=== PATIENT | male | born 1975 | race Hispanic/Latino ===

== ENCOUNTER 2019-07-27 07:53 | Inpatient (IN) | payer OTHER ==
[~2019-07-27 07:53] MED LIST: ALPR0.5T8 PO; FLUO20CA30 PO; LANS30CA55 PO; LISI40TA4 PO; RANI150T7 PO; ZOLP10TA6 PO
[2019-07-27] MEDS ORDERED: LORAZEPAM 2 MG/ML 1 ML VIAL ONE ×2 (08:11→09:23)
[2019-07-27 09:07] LABS: ALANINE AMINOTRANSFERASE 126 U/L (12-78); ALBUMIN 4.3 g/dL (3.5-5.0); ASPARTATE AMINOTRANSFERASE 135 U/L (10-37); BILIRUBIN,TOTAL 1.4 mg/dL (0.2-1.0); CARBON DIOXIDE 17 mmol/L (21-32); CREATININE 0.7 mg/dL (0.5-1.5); GLOMERULAR FILTR. RATE CALC 130 mL/min (>60); GLUCOSE,RANDOM 143 mg/dL (70-105); MYOGLOBIN 100 ng/mL (10-92); SODIUM SERUM 115 mmol/L (136-145); TOTAL PROTEIN, SERUM 7.7 g/dL (6.0-8.3); TROPONIN I < 0.04 ng/mL (0.00-0.06); UREA NITROGEN, BLOOD 11 mg/dL (7-18)
[2019-07-27] MEDS ORDERED: SODIUM CHLORIDE 0.9% 1000ML 2,000 ML IV ONE (09:08)
[2019-07-27 09:09] LABS: BASOPHILS % (AUTO) 0.5 % (0.0-5.0); CHLORIDE 77 mmol/L (101-111); CREATINE KINASE, TOTAL 453 U/L (21-232); EOSINOPHILS % (AUTO) 1.5 % (0.0-8.0); HEMATOCRIT 33.7 % (42-54); MEAN CORPUSCULAR HEMOGLOBIN 32.9 pg (27.0-33.0); MEAN CORPUSCULAR HGB CONC 37.1 g/dL (32.0-36.0); MEAN CORPUSCULAR VOLUME 88.7 fL (79-99); MONOCYTES % (AUTO) 6.7 % (3.0-13.0); NEUTROPHILS % (AUTO) 86.6 % (40.0-77.0); PLATELET COUNT (AUTO) 134 K/uL (130-400); RED CELL DISTRIBUTION WIDTH 12.5 % (11.0-15.5); WHITE BLOOD COUNT (AUTO) 7.3 K/uL (4.8-10.8)
[2019-07-27 09:21] LABS: INR 1.04 (0.85-1.15); PARTIAL THROMBOPLASTIN TIME 28.9 SEC (26.3-35.5); PROTHROMBIN TIME 11.2 SEC (9.6-11.6)
[2019-07-27] MEDS ORDERED: ONDANSETRON HCL 4 MG/2 ML VIAL ONE (09:22)
[2019-07-27 09:46] LABS: CREATININE 0.6 mg/dL (0.5-1.5); POTASSIUM 4.5 mmol/L (3.5-5.1)
[2019-07-27] MEDS ORDERED: PHARMACY COMMUNICATION MISC PRN (10:15)
[2019-07-27] MEDS ORDERED: CHLORDIAZEPOXIDE HCL 25 MG CAP PO PRN (10:15)
[2019-07-27] MEDS ORDERED: LORAZEPAM 2 MG/ML 1 ML VIAL IVP PRN (10:15)
[2019-07-27 10:27] LABS: APPEARANCE,URINE CLEAR (CLEAR); BILIRUBIN,URINE NEGATIVE (NEGATIVE); COLOR,URINE YELLOW (YELLOW); GLUCOSE, URINE (UA) 100 mg/dL (NEGATIVE); KETONES,URINE 40 mg/dL (NEGATIVE); LEUKOCYTE ESTERASE ,URINE NEGATIVE (NEGATIVE); NITRATE,URINE NEGATIVE (NEGATIVE); OCCULT BLOOD,URINE SMALL (NEGATIVE); PH,URINE 5.5 (5.0-8.0); PROTEIN,URINE 100 mg/dL (NEGATIVE); UROBILINOGEN,URINE 0.2 mg/dL (0.2-1.0)
[2019-07-27 10:31] LABS: BACTERIA,URINE Few /HPF (None Seen); MUCUS,URINE Few LPF (None Seen); RBC,URINE 0-1 /HPF (0-1); SQUAMOUS EPITHELIAL CELL,UR Rare /HPF (0-2); WBC,URINE 0-1 /HPF (0-1)
[2019-07-27 10:34] LABS: AMPHET/METH SCREEN,URINE NEGATIVE (NEGATIVE); BARBITURATE SCREEN, URINE NEGATIVE (NEGATIVE); BENZODIAZEPINES SCREEN,URINE NEGATIVE (NEGATIVE); CANNABINOID SCREEN,URINE NEGATIVE (NEGATIVE); COCAINE SCREEN,URINE NEGATIVE (NEGATIVE); CREATININE,URINE RANDOM 209 mg/dL (30-135); OPIATE SCREEN,URINE NEGATIVE (NEGATIVE); PHENCYCLIDINE SCREEN,URINE NEGATIVE (NEGATIVE); SODIUM,URINE RANDOM 77 mmol/l (40-220)
[2019-07-27 10:58] LABS: ALCOHOL, BLOOD < 3 mg/dL (0-10)
[2019-07-27] MEDS ORDERED: LABETALOL HCL 5 MG/ML 20ML VIAL IV PRN (11:45)
[2019-07-27] MEDS ORDERED: LISINOPRIL 10 MG TABLET PO SCH (12:45)
--- NOTE | 2019-07-27 15:56 | NUR ---
DCP: HOME SW met with pt who lives independently at home with Etta Yuan [phone] and 15yro daughter. Pt is retired lawyers, uses no DME or in home care services. PCP is Dr Esquivel and he uses [facility] for rx. Pt denies dc needs and plan is home at dc Addendum: 07/27/19 at 1558 by MICHELA MEDRANO Amended: Links added.
[2019-07-27 17:30] LABS: CREATININE 0.7 mg/dL (0.5-1.5); POTASSIUM 3.9 mmol/L (3.5-5.1)
[2019-07-27] MEDS ORDERED: CHLORDIAZEPOXIDE HCL 25 MG CAP ONE (18:12)
[2019-07-27] MEDS ORDERED: FAMOTIDINE/PF 20 MG/2 ML VIAL IV SCH (21:00)
[2019-07-28 05:15] LABS: BASOPHILS % (AUTO) 0.2 % (0.0-5.0); EOSINOPHILS % (AUTO) 0.5 % (0.0-8.0); LYMPHOCYTES % (AUTO) 18.9 % (21.0-51.0); MEAN CORPUSCULAR HEMOGLOBIN 33.9 pg (27.0-33.0); MEAN CORPUSCULAR HGB CONC 36.1 g/dL (32.0-36.0); MONOCYTES % (AUTO) 9.5 % (3.0-13.0); NEUTROPHILS % (AUTO) 70.7 % (40.0-77.0); PLATELET COUNT (AUTO) 103 K/uL (130-400); RED BLOOD CELL COUNT(AUTO) 3.83 MIL/uL (4.50-6.20); RED CELL DISTRIBUTION WIDTH 12.9 % (11.0-15.5); WHITE BLOOD COUNT (AUTO) 4.2 K/uL (4.8-10.8)
[2019-07-28 05:40] LABS: ALBUMIN 3.9 g/dL (3.5-5.0); BILIRUBIN,TOTAL 1.1 mg/dL (0.2-1.0); CREATININE 0.8 mg/dL (0.5-1.5); MAGNESIUM 1.8 mg/dL (1.80-2.40); POTASSIUM 3.5 mmol/L (3.5-5.1); TOTAL PROTEIN, SERUM 7.7 g/dL (6.0-8.3)
[2019-07-28] MEDS ORDERED: ENOXAPARIN SODIUM 40 MG/0.4 ML SYRINGE SQ SCH (09:00)
[2019-07-28] MEDS ORDERED: M.V.I. IV [ADULT] 10 ML, FOLIC ACID 1 MG, THIAMINE HCL 100 MG in SODIUM CHLORIDE 0.9% 1... IV SCH (09:00)
[2019-07-28] MEDS ORDERED: THIAMINE HCL 100 MG TABLET PO SCH (09:00)
[2019-07-28] MEDS ORDERED: MULTIVITAMIN TABLET PO SCH (09:00)
[2019-07-28] MEDS ORDERED: FOLIC ACID 1 MG TABLET PO SCH (09:00)
[2019-07-28] MEDS ORDERED: THIAMINE HCL 100 MG TABLET ONE (09:41)
[2019-07-29] MEDS ORDERED: LISINOPRIL 10 MG TABLET PO SCH (12:30)
== END 2019-07-28 10:36 | disposition left against medical advice (07) | DRG 644 ==
LOC: EDH 07:53 → EDHIP 07:54
PROVIDERS: ADMIT Internal Medicine; ATTEND Internal Medicine
DX: E22.2 Syndrome of inappropriate secretion of antidiuretic hormone (principal); B17.9 Acute viral hepatitis, unspecified; E87.2 Acidosis; F10.239 Alcohol dependence with withdrawal, unspecified; I16.0 Hypertensive urgency; E11.9 Type 2 diabetes mellitus without complications; E86.0 Dehydration; F32.9 Major depressive disorder, single episode, unspecified; F41.1 Generalized anxiety disorder; I10 Essential (primary) hypertension; R53.81 Other malaise; R63.1 Polydipsia; Z82.3 Family history of stroke; Z82.49 Family history of ischemic heart disease and other diseases of the circulatory system
CPT/HCPCS: 36415; 70450; 71045; 76705; 80048; 80053; 80305; 81001; 82533; 82550; 82570; 83605; 83690; 83735; 83874; 83935; 84145; 84300; 84443; 84484; 85025; 85610; 85730; 87040; 87088; 93005; G0378; G0480; J2060; J2405; J3411; J3490; J7030

== ENCOUNTER 2020-09-02 00:02 | Emergency (ER) | payer SELFPAY ==
[~2020-09-02] VITALS: Ht 182.9 cm; Wt 81.6 kg
[~2020-09-02 00:02] MED LIST changes: -LISI40TA4 PO; +LISI40TA9 PO
[2020-09-02 00:04] VITALS: BP 126/77
[2020-09-02 01:23] VITALS: BP 129/84
[2020-09-02 03:01] VITALS: BP 117/74
== END 2020-09-02 03:36 | disposition home or self-care (01) ==
LOC: EDH 00:08
DX: S01.01XA Laceration without foreign body of scalp, initial encounter (principal); F10.129 Alcohol abuse with intoxication, unspecified; I10 Essential (primary) hypertension; Z79.899 Other long term (current) drug therapy; W18.39XA Other fall on same level, initial encounter; Y93.89 Activity, other specified; Y92.89 Other specified places as the place of occurrence of the external cause; Y99.8 Other external cause status
CPT/HCPCS: 12002; 70450

== ENCOUNTER 2020-12-31 21:11 | Inpatient (IN) | payer OTHER ==
[~2020-12-31] VITALS: Ht 182.9 cm; Wt 65.8 kg
[2020-12-31 21:59] LABS: ALBUMIN 1.5 g/dL (3.5-5.0); BILIRUBIN,TOTAL 6.3 mg/dL (0.2-1.0); CREATININE 1.3 mg/dL (0.5-1.5); POTASSIUM 3.2 mmol/L (3.5-5.1)
[2020-12-31 22:17] LABS: BASOPHILS % (AUTO) 0.1 % (0.0-5.0); EOSINOPHILS % (AUTO) 0.1 % (0.0-8.0); HEMATOCRIT 26.1 % (42-54); LYMPHOCYTES % (AUTO) 12.7 % (21.0-51.0); MEAN CORPUSCULAR HEMOGLOBIN 34.5 pg (27.0-33.0); MEAN CORPUSCULAR HGB CONC 37.9 g/dL (32.0-36.0); MEAN CORPUSCULAR VOLUME 90.9 fL (79-99); MONOCYTES % (AUTO) 11.5 % (3.0-13.0); PLATELET COUNT (AUTO) 112 K/uL (130-400); RED BLOOD CELL COUNT(AUTO) 2.87 MIL/uL (4.50-6.20); RED CELL DISTRIBUTION WIDTH 15.5 % (11.0-15.5); WHITE BLOOD COUNT (AUTO) 8.9 K/uL (4.8-10.8)
[2020-12-31 22:21] LABS: CRP QUANTITATIVE 32.4 mg/L (0.00-9.0); MAGNESIUM 1.1 mg/dL (1.80-2.40)
[2020-12-31] MEDS ORDERED: 0.9%NACL 1000ML 1,000 ML IV ONE (22:22)
[2020-12-31] MEDS ORDERED: IOHEXOL 350 MG/ML 100ML INFUS..BTL IV ONE ×2 (22:29→23:03)
[2020-12-31] MEDS ORDERED: LACTATED RINGERS 1000ML 1,000 ML IV ONE ×2 (22:30)
[2021-01-01] MEDS ORDERED: ALBUMIN (HUMAN) 25% 100 ML IV SCH (01:21)
[2021-01-01] MEDS ORDERED: AZITHROMYCIN 500MG VIAL IVPB SCH (01:30)
[2021-01-01] MEDS ORDERED: 0.9% NACL 250ML IVPB SCH (01:30)
[2021-01-01 01:55] LABS: AMYLASE 137 U/L (25-115); LIPASE 433 U/L (114-286)
[2021-01-01] MEDS ORDERED: ACETAMINOPHEN 325 MG TAB PO PRN ×2 (02:00)
[2021-01-01] MEDS ORDERED: NITROGLYCERIN 0.4 MG SL TAB SL PRN (02:00)
[2021-01-01] MEDS ORDERED: CALCIUM GLUC 1GM 2 GM in 0.9%NACL 100ML 100 ML IV SCH (02:00)
[2021-01-01] MEDS ORDERED: ONDANSETRON 4MG INJ IV PRN (02:00)
[2021-01-01] MEDS ORDERED: 0.9% NACL 500ML IV.SOLN 500 ML IV SCH (03:00)
[2021-01-01] MEDS ORDERED: ALBUMIN (HUMAN) 25% 100 ML IV ONE (03:18)
[2021-01-01] MEDS: CEFTRIAXONE 1G VIAL IVP SCH (03:37)
[2021-01-01] MEDS: AZITHROMYCIN 500MG+NS 250ML 250 ML IV SCH (04:26)
[2021-01-01] MEDS: MAGNESIUM 2GM PREMIX 50ML 50 ML IV SCH ×3 (04:29→12:54)
[2021-01-01 04:38] LABS: BASOPHILS % (AUTO) 0.1 % (0.0-5.0); EOSINOPHILS % (AUTO) 0.2 % (0.0-8.0); HEMATOCRIT 24.5 % (42-54); LYMPHOCYTES % (AUTO) 14.6 % (21.0-51.0); MEAN CORPUSCULAR HEMOGLOBIN 34.1 pg (27.0-33.0); MEAN CORPUSCULAR HGB CONC 37.6 g/dL (32.0-36.0); MEAN CORPUSCULAR VOLUME 90.7 fL (79-99); MONOCYTES % (AUTO) 12.8 % (3.0-13.0); NEUTROPHILS % (AUTO) 71.7 % (40.0-77.0); PLATELET COUNT (AUTO) 95 K/uL (130-400); RED CELL DISTRIBUTION WIDTH 15.9 % (11.0-15.5); WHITE BLOOD COUNT (AUTO) 8.3 K/uL (4.8-10.8)
[2021-01-01 04:40] LABS: APPEARANCE,URINE Clear (CLEAR); BILIRUBIN,URINE Large (NEGATIVE); COLOR,URINE Dark Yellow (YELLOW); GLUCOSE, URINE (UA) Negative (NEGATIVE); KETONES,URINE Negative (NEGATIVE); LEUKOCYTE ESTERASE ,URINE Negative (NEGATIVE); NITRATE,URINE Negative (NEGATIVE); OCCULT BLOOD,URINE Negative (NEGATIVE); PH,URINE 6.5 (5.0-8.0); PROTEIN,URINE Trace mg/dL (NEGATIVE)
[2021-01-01 04:46] LABS: BACTERIA,URINE None Seen /HPF (None Seen); RBC,URINE None Seen /HPF (0-1); SQUAMOUS EPITHELIAL CELL,UR Few /HPF (0-2); WBC,URINE None Seen /HPF (0-1)
[2021-01-01 04:48] LABS: AMPHET/METH SCREEN,URINE NEGATIVE (NEGATIVE); BARBITURATE SCREEN, URINE NEGATIVE (NEGATIVE); BENZODIAZEPINES SCREEN,URINE POSITIVE (NEGATIVE); CANNABINOID SCREEN,URINE NEGATIVE (NEGATIVE); COCAINE SCREEN,URINE NEGATIVE (NEGATIVE); OPIATE SCREEN,URINE NEGATIVE (NEGATIVE); PHENCYCLIDINE SCREEN,URINE NEGATIVE (NEGATIVE)
[2021-01-01 04:59] LABS: ALBUMIN 1.9 g/dL (3.5-5.0); BILIRUBIN,TOTAL 6.3 mg/dL (0.2-1.0); MAGNESIUM 1.1 mg/dL (1.80-2.40); TOTAL PROTEIN, SERUM 5.9 g/dL (6.0-8.3)
[2021-01-01 05:01] LABS: INR 3.06 (0.85-1.15); PROTHROMBIN TIME 30.1 SEC (9.6-11.6)
[2021-01-01 05:02] LABS: PARTIAL THROMBOPLASTIN TIME 76.8 SEC (26.3-35.5)
[2021-01-01 05:08] LABS: % IRON SATURATION 177.1 % (30-44)
[2021-01-01] MEDS ORDERED: CALCIUM GLUC 1GM/10ML VIAL ONE (05:22)
[2021-01-01] MEDS ORDERED: 0.9%NACL 100ML 100 ML ONE (05:23)
[2021-01-01] MEDS ORDERED: MAGNESIUM 2GM PREMIX 50ML 50 ML IV PRN (06:00)
[2021-01-01] MEDS ORDERED: ESCI-8 PO (07:13)
[2021-01-01] MEDS ORDERED: LISI10TA24 PO (07:15)
[2021-01-01] MEDS ORDERED: PANT40TA54 PO (07:15)
[2021-01-01] MEDS ORDERED: ALBUMIN (HUMAN) 25% 200 ML IV SCH (09:00)
[2021-01-01 10:00] VITALS: BP 92/55
[2021-01-01 11:35] LABS: APPEARANCE BODY FLUID CLEAR (CLEAR); BODY FLUID WBC 17 /cu. mm.; COLOR,BODY FLUID YELLOW (LT YELLOW); SPECIMENTYPE,BODY FLUID ASCITES; TOTAL VOLUME,BODY FLUID 9000 mL
[2021-01-01 11:36] LABS: BODY FLUID RBC 84 /cu. mm.
[2021-01-01 11:39] LABS: BF LYMPHOCYTE 27 %; BF MESOTHELIAL 53 %; BF MONOCYTE 20 %
[2021-01-01] MEDS ORDERED: TRAZ-185 PO (11:44)
[2021-01-01] MEDS ORDERED: ESZO2TAB31 PO (11:44)
[2021-01-01] MEDS ORDERED: ALBUMIN (HUMAN) 25% 100 ML IV PRN (12:00)
[2021-01-01] MEDS ORDERED: COMPOUND IV MISC 1 EACH IVSOLN MISC PRN (12:00)
[2021-01-01] MEDS ORDERED: LORAZEPAM 2 MG/ML 1 ML VIAL IVP PRN (12:30)
[2021-01-01] MEDS ORDERED: PHARMACY COMMUNICATION MISC PRN (12:30)
[2021-01-01] MEDS: FAMOTIDINE 20MG VIAL IV SCH ×2 (12:54→20:05)
[2021-01-01] MEDS: THIAMINE HCL 100 MG/ML 2ML VIAL IVP SCH ×2 (12:54→20:05)
[2021-01-01] MEDS: PHYTONADIONE 10 MG in 0.9%NACL 50ML 50 ML IVPB SCH (12:55)
[2021-01-01] MEDS: FOLIC ACID 5 MG/ML VIAL IV SCH (12:55)
[2021-01-01 13:09] LABS: GLUCOSE,BODY FLUID 110 mg/dL (1-40)
[2021-01-01 15:41] VITALS: BP 96/51
[2021-01-01] MEDS: IRON SUCROSE COMPLEX 300 MG in 0.9%NACL 50ML 50 ML IV SCH (16:43)
[2021-01-01] MEDS: MIDODRINE HCL 5 MG TABLET PO SCH ×2 (16:44→20:04)
[2021-01-01] MEDS ORDERED: LIDOCAINE HCL-MPF 1% 2ML VIAL IV PRN (18:00)
[2021-01-01] MEDS ORDERED: POTASSIUM CHLORIDE 10% ELIXIR 20 MEQ/15 ML UDCUP PO PRN (18:00)
[2021-01-01 20:00] VITALS: BP 92/53
[2021-01-01] MEDS: KCL 20 MEQ ERTAB PO PRN (20:04)
[2021-01-01] MEDS: SPIRONOLACTONE 25 MG TAB PO SCH (20:15)
[2021-01-01 23:45] VITALS: BP 99/54
[2021-01-02] VITALS (7 sets, daily range): BP systolic 93–105; BP diastolic 50–61
[2021-01-02] MEDS: AZITHROMYCIN 500MG+NS 250ML 250 ML IV SCH (02:23)
[2021-01-02] MEDS: CEFTRIAXONE 1G VIAL IVP SCH (02:23)
[2021-01-02 04:27] LABS: BASOPHILS % (AUTO) 0.2 % (0.0-5.0); EOSINOPHILS % (AUTO) 0.4 % (0.0-8.0); HEMATOCRIT 22.4 % (42-54); LYMPHOCYTES % (AUTO) 12.8 % (21.0-51.0); MEAN CORPUSCULAR HGB CONC 37.5 g/dL (32.0-36.0); MEAN CORPUSCULAR VOLUME 93.3 fL (79-99); MONOCYTES % (AUTO) 8.1 % (3.0-13.0); NEUTROPHILS % (AUTO) 77.8 % (40.0-77.0); PLATELET COUNT (AUTO) 105 K/uL (130-400); RED CELL DISTRIBUTION WIDTH 15.9 % (11.0-15.5); WHITE BLOOD COUNT (AUTO) 8.4 K/uL (4.8-10.8)
[2021-01-02 04:40] LABS: INR 2.54 (0.85-1.15); PROTHROMBIN TIME 25.4 SEC (9.6-11.6)
[2021-01-02 04:53] LABS: CREATININE 0.7 mg/dL (0.5-1.5)
[2021-01-02 05:09] LABS: ALBUMIN 1.9 g/dL (3.5-5.0); BILIRUBIN,TOTAL 6.9 mg/dL (0.2-1.0); MAGNESIUM 1.6 mg/dL (1.80-2.40); PHOSPHORUS 2.9 mg/dL (2.5-4.9); TOTAL PROTEIN, SERUM 4.9 g/dL (6.0-8.3)
[2021-01-02 05:16] LABS: POTASSIUM 2.8 mmol/L (3.5-5.1)
[2021-01-02] MEDS: MAGNESIUM 2GM PREMIX 50ML 50 ML IV SCH (05:34)
[2021-01-02] MEDS: KCL 20 MEQ ERTAB PO PRN ×2 (06:37→10:43)
[2021-01-02] MEDS: POTASSIUM CHLORIDE 20MEQ/100ML 100 ML IV PRN ×2 (06:43→10:43)
[2021-01-02 07:15] LABS: HEPATITIS A ANTIBODY IGM Negative (Negative); HEPATITIS B CORE IGM Negative (Negative); HEPATITIS Bs ANTIGEN SCREEN P Negative (Negative)
[2021-01-02] MEDS: MIDODRINE HCL 5 MG TABLET PO SCH ×2 (10:33→20:30)
[2021-01-02] MEDS: SPIRONOLACTONE 25 MG TAB PO SCH ×2 (10:33→20:30)
[2021-01-02] MEDS: FAMOTIDINE 20MG VIAL IV SCH ×2 (10:33→20:30)
[2021-01-02] MEDS: THIAMINE HCL 100 MG/ML 2ML VIAL IVP SCH ×2 (10:33→20:30)
[2021-01-02] MEDS: FOLIC ACID 5 MG/ML VIAL IV SCH (10:43)
[2021-01-02] MEDS: IRON SUCROSE COMPLEX 300 MG in 0.9%NACL 50ML 50 ML IV SCH (10:43)
[2021-01-02] MEDS ORDERED: KCL 20 MEQ ERTAB PO SCH (14:30)
[2021-01-02] MEDS ORDERED: GADOTERATE MEGLUMINE 10 MMOL/20 ML VIAL IV ONE (15:04)
[2021-01-02] MEDS ORDERED: EPOETIN ALFA-EPBX (NON-ESRD) 10,000 UNIT/ML VIAL SQ SCH (15:30)
[2021-01-02 16:02] LABS: POTASSIUM 4.4 mmol/L (3.5-5.1)
[2021-01-02] MEDS: 0.9%NACL 1000ML 1,000 ML IV SCH ×2 (16:56→17:48)
[2021-01-02] MEDS: PHYTONADIONE 10 MG in 0.9%NACL 50ML 50 ML IVPB SCH (17:49)
[2021-01-02] MEDS ORDERED: MIDODRINE HCL 5 MG TABLET PO SCH (21:00)
[2021-01-03 00:20] VITALS: BP 102/61
[2021-01-03] MEDS: CEFTRIAXONE 1G VIAL IVP SCH (02:11)
[2021-01-03 04:11] VITALS: BP 95/53
[2021-01-03 04:12] LABS: ALBUMIN 1.8 g/dL (3.5-5.0); BILIRUBIN,TOTAL 9.2 mg/dL (0.2-1.0); CREATININE 0.7 mg/dL (0.5-1.5); POTASSIUM 5.4 mmol/L (3.5-5.1); TOTAL PROTEIN, SERUM 5.1 g/dL (6.0-8.3)
[2021-01-03] MEDS ORDERED: MIDODRINE HCL 5 MG TABLET PO SCH (05:00)
[2021-01-03 08:00] VITALS: BP 96/53
[2021-01-03] MEDS: PHYTONADIONE 10 MG in 0.9%NACL 50ML 50 ML IVPB SCH (09:00)
[2021-01-03] MEDS: FAMOTIDINE 20MG VIAL IV SCH ×2 (10:35→20:57)
[2021-01-03] MEDS: MIDODRINE HCL 5 MG TABLET PO SCH ×3 (10:38→20:57)
[2021-01-03] MEDS: THIAMINE HCL 100 MG/ML 2ML VIAL IVP SCH ×2 (10:38→20:57)
[2021-01-03] MEDS: SPIRONOLACTONE 25 MG TAB PO SCH ×2 (10:39→20:57)
[2021-01-03] MEDS: FOLIC ACID 5 MG/ML VIAL IV SCH (10:39)
[2021-01-03] MEDS: IRON SUCROSE COMPLEX 300 MG in 0.9%NACL 50ML 50 ML IV SCH (10:40)
[2021-01-03 12:00] VITALS: BP 92/57
[2021-01-03 16:00] VITALS: BP 101/60
[2021-01-03 20:00] VITALS: BP 101/60
[2021-01-04] VITALS: BP 95/53
[2021-01-04] MEDS: CEFTRIAXONE 1G VIAL IVP SCH (01:18)
[2021-01-04 03:56] LABS: BASOPHILS % (AUTO) 0.5 % (0.0-5.0); EOSINOPHILS % (AUTO) 0.7 % (0.0-8.0); HEMATOCRIT 23.7 % (42-54); LYMPHOCYTES % (AUTO) 16.5 % (21.0-51.0); MEAN CORPUSCULAR HEMOGLOBIN 35.4 pg (27.0-33.0); MEAN CORPUSCULAR VOLUME 93.3 fL (79-99); MONOCYTES % (AUTO) 8.6 % (3.0-13.0); NEUTROPHILS % (AUTO) 72.5 % (40.0-77.0); PLATELET COUNT (AUTO) 134 K/uL (130-400); RED BLOOD CELL COUNT(AUTO) 2.54 MIL/uL (4.50-6.20); RED CELL DISTRIBUTION WIDTH 16.9 % (11.0-15.5); WHITE BLOOD COUNT (AUTO) 12.8 K/uL (4.8-10.8)
[2021-01-04 04:00] VITALS: BP 93/53
[2021-01-04 04:08] LABS: ALBUMIN 1.8 g/dL (3.5-5.0); BILIRUBIN,TOTAL 9.4 mg/dL (0.2-1.0); CREATININE 0.7 mg/dL (0.5-1.5); POTASSIUM 4.7 mmol/L (3.5-5.1); TOTAL PROTEIN, SERUM 5.2 g/dL (6.0-8.3)
[2021-01-04 08:00] VITALS: BP 91/55
[2021-01-04] MEDS: FAMOTIDINE 20MG VIAL IV SCH ×2 (08:34→20:44)
[2021-01-04] MEDS: IRON SUCROSE COMPLEX 300 MG in 0.9%NACL 50ML 50 ML IV SCH (08:35)
[2021-01-04] MEDS: MIDODRINE HCL 5 MG TABLET PO SCH ×3 (08:37→20:44)
[2021-01-04] MEDS: SPIRONOLACTONE 25 MG TAB PO SCH ×2 (08:38→20:44)
[2021-01-04] MEDS: THIAMINE HCL 100 MG/ML 2ML VIAL IVP SCH ×2 (08:40→20:44)
[2021-01-04] MEDS: FOLIC ACID 5 MG/ML VIAL IV SCH (08:55)
[2021-01-04 12:00] VITALS: BP 102/64
[2021-01-04 16:00] VITALS: BP 97/64
[2021-01-04 20:00] VITALS: BP 98/52
[2021-01-05] VITALS: BP 93/55
[2021-01-05] MEDS: CEFTRIAXONE 1G VIAL IVP SCH (00:54)
[2021-01-05 04:00] VITALS: BP 94/52
[2021-01-05 04:53] LABS: BASOPHILS % (AUTO) 0.5 % (0.0-5.0); EOSINOPHILS % (AUTO) 0.6 % (0.0-8.0); HEMATOCRIT 23.9 % (42-54); LYMPHOCYTES % (AUTO) 17.8 % (21.0-51.0); MEAN CORPUSCULAR HEMOGLOBIN 34.9 pg (27.0-33.0); MEAN CORPUSCULAR HGB CONC 36.4 g/dL (32.0-36.0); MONOCYTES % (AUTO) 9.9 % (3.0-13.0); NEUTROPHILS % (AUTO) 68.7 % (40.0-77.0); PLATELET COUNT (AUTO) 146 K/uL (130-400); RED BLOOD CELL COUNT(AUTO) 2.49 MIL/uL (4.50-6.20); RED CELL DISTRIBUTION WIDTH 17.8 % (11.0-15.5); WHITE BLOOD COUNT (AUTO) 13.3 K/uL (4.8-10.8)
[2021-01-05 05:05] LABS: ALBUMIN 1.8 g/dL (3.5-5.0); BILIRUBIN,TOTAL 8.8 mg/dL (0.2-1.0); CREATININE 0.9 mg/dL (0.5-1.5); POTASSIUM 4.4 mmol/L (3.5-5.1); TOTAL PROTEIN, SERUM 5.2 g/dL (6.0-8.3)
[2021-01-05] MEDS ORDERED: FERROUS SULFATE 325 MG TABLET.DR PO SCH (09:00)
== END 2021-01-05 07:58 | disposition left against medical advice (07) | DRG 432 ==
LOC: EDH 21:11 → EDHIP 01-01 01:25 → 4DH 01-01 08:28 → 3AH 01-02 16:44
PROVIDERS: ADMIT Internal Medicine; ATTEND Internal Medicine
PROC: 0W9G3ZZ Drainage of Peritoneal Cavity, Percutaneous Approach (ICD-10-PCS; principal; 2021-01-01)
DX: K70.31 Alcoholic cirrhosis of liver with ascites (principal); E43 Unspecified severe protein-calorie malnutrition; D68.9 Coagulation defect, unspecified; E87.1 Hypo-osmolality and hyponatremia; Z68.1 Body mass index [BMI] 19.9 or less, adult; I95.9 Hypotension, unspecified; D69.6 Thrombocytopenia, unspecified; E87.6 Hypokalemia; E83.42 Hypomagnesemia; E83.51 Hypocalcemia; K21.9 Gastro-esophageal reflux disease without esophagitis; D50.9 Iron deficiency anemia, unspecified; I10 Essential (primary) hypertension; Z82.3 Family history of stroke; Z82.49 Family history of ischemic heart disease and other diseases of the circulatory system; Z20.822 Contact with and (suspected) exposure to COVID-19
CPT/HCPCS: 36415; 49083; 71045; 74177; 74183; 80053; 80074; 80305; 81001; 82042; 82105; 82140; 82150; 82330; 82607; 82728; 82945; 82977; 83540; 83550; 83605; 83615; 83690; 83735; 83880; 83986; 84100; 84132; 84145; 84157; 85025; 85610; 85730; 86140; 86316; 86804; 87040; 87071; 87205; 87522; 87635; 89051; 93005; C1729; G0378; J0456; J0610; J0696; J1756; J3411; J3430; J3475; J3480; J3490; J7030; J7040; P9046; Q9967